=== PATIENT | male | born 2005 | race African-American/Black ===

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

== ENCOUNTER → 2023-03-11 | Outpatient (CLI) | payer OTHER ==
[~2023-03-11] MED LIST changes: +CLON2 PO; +Prinivil10 MG PO; +TOPI25 PO
[2023-03-11 16:07] LABS: Microalbumin, Urine Quant. 11.4 mg/L (0.000-20.000); Protein, Urine Quantitative 15.8 mg/dL (0.0-11.9); Uric Acid, Urine 49.3 mg/dL (7.5-49.5)
[2023-03-11 19:07] LABS: Calcium, Urine 13.7 mg/dL (< 17.5); Calcium, Urine Calculation 164.4 mg/24hrs (42.0-353.0); Phosphorus, Urine 53.7 mg/dL (20.0-60.0)
== END ==
LOC: LAB 07:00 → LAB SHORT 07:00 → EDSTATUS 15:19
PROVIDERS: Internal Medicine Nephrology
DX: N18.2 Chronic kidney disease, stage 2 (mild) (principal); D63.1 Anemia in chronic kidney disease; N25.81 Secondary hyperparathyroidism of renal origin; E78.00 Pure hypercholesterolemia, unspecified; N20.0 Calculus of kidney; R32 Unspecified urinary incontinence; R76.9 Abnormal immunological finding in serum, unspecified; R94.5 Abnormal results of liver function studies; D51.8 Other vitamin B12 deficiency anemias
CPT/HCPCS: 81050; 82043; 82131; 82340; 82507; 82570; 83945; 84105; 84156; 84300; 84560

== ENCOUNTER 2023-03-22 13:39 | Observation (INO) | payer OTHER ==
[~2023-03-22] VITALS: Ht 177.8 cm; Wt 106.5 kg
[~2023-03-22 13:39] MED LIST changes: -CLON2 PO; -TOPI25 PO
[2023-03-22] MEDS ORDERED: CLON2 PO (19:00)
[2023-03-22] MEDS ORDERED: TOPI25 PO (19:00)
[2023-03-22 23:09] LABS: BASOPHILS ABSOLUTE AUTO 0.03 K/mm3 (0.00-0.23); BASOPHILS PERCENT AUTO 0 % (0-2); EOSINOPHILS ABSOLUTE AUTO 0.05 K/mm3 (0.00-0.68); EOSINOPHILS PERCENT AUTO 1 % (0-6); Hematocrit 43.2 % (37.0-53.0); Hemoglobin 14.7 g/dL (13.5-17.5); IMMATURE GRAN ABSOLUTE AUTO 0.02 K/mm3 (0.00-0.10); IMMATURE GRAN PERCENT AUTO 0 % (0-1); LYMPHOCYTES ABSOLUTE AUTO 1.92 K/mm3 (0.84-5.20); LYMPHOCYTES PERCENT AUTO 27 % (21-46); MONOCYTES ABSOLUTE AUTO 0.56 K/mm3 (0.16-1.47); MONOCYTES PERCENT AUTO 8 % (4-13); Mean Corpuscular HGB 25.7 pg (26.0-34.0); Mean Corpuscular Volume 76 fL (80-100); Mean Platelet Volume 9.6 fL (9.1-12.4); NEUTROPHILS ABSOLUTE AUTO 4.64 K/mm3 (1.96-9.15); NEUTROPHILS PERCENT AUTO 64 % (41-73); Platelet Count 383 K/mm3 (150-400); RDW Coefficient Variation 14.8 % (11.7-14.2); RDW Standard Deviation 40.3 fL (35.1-46.3); Red Blood Cell Count 5.71 M/mm3 (4.30-5.90); White Blood Cell Count 7.22 K/mm3 (4.00-11.30)
[2023-03-22 23:24] LABS: Bun/Creatinine Ratio 6.1 (12.0-20.0); Creatinine, Blood 0.99 mg/dL (0.60-1.20); Magnesium, Blood 2.1 mg/dL (1.6-2.4); Potassium, Blood 3.9 mmol/L (3.5-5.5)
[2023-03-23 01:17] VITALS: BP 141/75
--- NOTE | 2023-03-23 02:18 | NUR ---
PT ARRIVED ON UNIT AT ABOUT ~0130. AOX4, PLEASANT, COOPERATIVE WITH CARE. MOTHER AT BEDSIDE. PT IS AUTISTIC AND MOTHER IS PRIMARY CAREGIVER. SATTING WELL ON ROOM AIR. TELE IS ON AND RUNNING NSR THUS FAR WITH NO EVENTS. PT REPORTS HE WAS HAVING CHEST PAIN IN THE ED AND BEFORE COMING IN BUT DENIES ANY NOW. DIRECTED TO INFORM STAFF IF CHEST PAIN PRESENTS. SEIZURE PRECUATIONS IN PLACE. SKIN ASSESSMENT UNREMARKABLE. ON ADMISSION ASSESSMENT, PT REPORTED THAT HE DOES NOT FEEL ENTIRELY SAFE RETURNING HOME DUE TO CONFLICT WITH HIS FATHER AT HOME. REPORTED THAT THIS IS MOSTLY VERBAL ALTHOUGH WAS SOMEWHAT CAGEY WHEN ASKED IF THIS HAD EVER TURNED PHYSICAL IN THE PAST. INCONCLUSIVE. DOCUMENTED SUCH AND NOTIFIED DR. CORTEZ HE CAME UP TO ASSESS PT. DR. CORTEZ DISCUSSED BRIEFLY WITH PT AND NOTIFIED HE WOULD ENTER A [employer]AREHOUSE DISTRIBUTION MANAGER CONSULT FOR FURTHER INVESTIGATION. PT HAS STEADY GAIT AND STRENGTH IS INTACT ALTHOUGH DUE TO PREADMISSION SYNCOPE DIRECTED TO CALL STAFF BEFORE GETTING OOB. PT VOICED UNDERSTANDING. BED LOCKED IN LOWEST POSITION. CALL LIGHT LEFT WIHTIN REACH.
--- NOTE | 2023-03-23 04:25 | NUR ---
SHIFT SUMMARY. SHIFT HAS BEEN MOSTLY UNREMARKABLE AFTER PT ARRIVED ON FLOOR. REMAINS AOX4, PLEASANT, COOPERATIVE WITH CARE. CALLS APPROPRIATELY THUS FAR. MOTHER REMAINS AT BEDSIDE. NO COMPLAINTS OF PAIN. TELE RUNNING NSR WITH NO EVENTS THUS FAR. HAS BEEN ABLE TO SLEEP THROUGH MOST OF MORNING SINCE ARRIVING. BED LOCKED IN LOWEST POSITION. CALLLIGHT LEFT WITHINR EACH.
[2023-03-23 05:20] LABS: BASOPHILS ABSOLUTE AUTO 0.02 K/mm3 (0.00-0.23); BASOPHILS PERCENT AUTO 0 % (0-2); EOSINOPHILS ABSOLUTE AUTO 0.09 K/mm3 (0.00-0.68); EOSINOPHILS PERCENT AUTO 1 % (0-6); Hematocrit 40.2 % (37.0-53.0); Hemoglobin 13.8 g/dL (13.5-17.5); IMMATURE GRAN ABSOLUTE AUTO 0.01 K/mm3 (0.00-0.10); IMMATURE GRAN PERCENT AUTO 0 % (0-1); LYMPHOCYTES ABSOLUTE AUTO 2.49 K/mm3 (0.84-5.20); LYMPHOCYTES PERCENT AUTO 37 % (21-46); MONOCYTES PERCENT AUTO 9 % (4-13); Mean Corpuscular HGB Conc 34.3 g/dL (31.5-36.5); Mean Corpuscular Volume 76 fL (80-100); NEUTROPHILS ABSOLUTE AUTO 3.51 K/mm3 (1.96-9.15); NEUTROPHILS PERCENT AUTO 52 % (41-73); Platelet Count 349 K/mm3 (150-400); RDW Coefficient Variation 14.9 % (11.7-14.2); Red Blood Cell Count 5.31 M/mm3 (4.30-5.90); White Blood Cell Count 6.72 K/mm3 (4.00-11.30)
--- NOTE | 2023-03-23 05:23 | NUR ---
call from tele notifying that starting at 0450 pt started to show inverted T waves on tele monitor. checked on pt, pt was sleeping comfortably and denied any change in condition. reviewed ekg performed in ED. ekg showed inverted T waves on lead 3 and noted no significant changes from previous ekg in November of this year. discussed with charge machine operatordarya rod. no need to notify physician at this time.
[2023-03-23 05:28] VITALS: BP 123/64
[2023-03-23 06:00] LABS: Magnesium, Blood 2.2 mg/dL (1.6-2.4)
[2023-03-23 06:01] LABS: Albumin, Blood 3.4 g/dL (3.4-5.0); Albumin/Globulin Ratio 0.9 (0.8-1.8); Bilirubin, Total 0.2 mg/dL (0.1-1.0); Bun/Creatinine Ratio 6.8 (12.0-20.0); Calcium, Blood 9.1 mg/dL (8.5-10.1); Creatinine, Blood 1.17 mg/dL (0.60-1.20); Globulin, Blood 3.6 g/dL (2.2-4.0); Potassium, Blood 4.1 mmol/L (3.5-5.5)
[2023-03-23 07:36] VITALS: BP 108/59
[2023-03-23 11:33] VITALS: BP 131/70
[2023-03-23 15:35] VITALS: BP 126/71
--- NOTE | 2023-03-23 18:44 | NUR ---
DISCHARGE SUMMARY PATIENT WITH NO ACUTE EVENTS DURING SHIFT. HE IS UP AND WALKING AROUND UNIT WITH MOTHER ON ROOM AIR WITH NO SYMPTOMS.MEDICATION AND EDUCATION PACKET PRINTED AND GIVEN TO PATIENT AND MOTHER. ALL QUESTIONS ANSWERED. VERBAL EDUCATION ON PATIENT PORTAL INFORMATION PROVIDED. CONSENT SIGNED. PATIENT LEFT UNIT AMBULATING BY CHOICE WITH MOTHER AT 1731.
== END 2023-03-23 17:34 | disposition home or self-care (01) ==
LOC: ER 13:39 → MEDS 13:40
PROVIDERS: Student in an Organized Health Care Education/Training Program; ADMIT Student in an Organized Health Care Education/Training Program
DX: R55 Syncope and collapse (principal); F84.0 Autistic disorder; G40.909 Epilepsy, unspecified, not intractable, without status epilepticus; G47.33 Obstructive sleep apnea (adult) (pediatric); Z99.89 Dependence on other enabling machines and devices; I12.9 Hypertensive chronic kidney disease with stage 1 through stage 4 chronic kidney disease, or unspecified chronic kidney disease; N18.9 Chronic kidney disease, unspecified
CPT/HCPCS: 36415; 80048; 80053; 83735; 84484; 85025; 93005; 93010; 93306; 99285-25; A9270; G0378